=== PATIENT | female | born 1990 | race Caucasian/White ===

== ENCOUNTER 2016-06-25 15:17 | Day surgery (SDC) | payer OTHER ==
[2016-06-25] VITALS (8 sets, daily range): BP systolic 107–132; BP diastolic 37–72; PULSE 38–82; TEMP 98.6–99.9
[~2016-06-25] VITALS: Ht 160 cm; Wt 81.9 kg
[~2016-06-25 15:17] MED LIST: ALDOMET 250MG250 MG; IBIFON 600600 MG PO; PERCOCET 325 MG1 TA2 PO; PRENATAL1 TA1 PO
[2016-06-25] MEDS ORDERED: TIROSINT50 MC1 PO (16:33)
== END 2016-06-25 22:00 | disposition home or self-care (01) ==
LOC: SDCO 15:17 → SURG 18:30 → SDCO 22:00
DX: R94.5 Abnormal results of liver function studies (principal); K31.9 Disease of stomach and duodenum, unspecified
CPT/HCPCS: OP; C1769; J2704; J2765; J3010; J7030; Q9967